=== PATIENT | female | born 1940 | race Caucasian/White ===

== ENCOUNTER → 2016-09-26 | Outpatient (CLI) | payer OTHER ==
--- NOTE | 2016-09-26 12:33 | US ---
Abdomen Retroperitoneal Renal Ultrasound: 1114 hours Indications: Rising creatinine. Findings: No hydronephrosis, shadowing renal calculi, focal cortical abnormalities or perinephric fl uid. Right kidney: 9.2 x 3.6 x 4 cm. Cortical thickness 1.1 cm. Left kidney: 10.0 x 3.8 x 3.8 cm. Cortical thickness 1.1 cm. Urinary bladder is unremarkable. No wall thickening or mass. Normal bilateral ureteral jets are visua lized. Prevoid volume: 111 mL The patient was unable to void. Impression: Normal renal ultrasound.
== END ==
LOC: FIMAGING 10:52
PROVIDERS: ATTEND Internal Medicine Hematology & Oncology
DX: R94.4 Abnormal results of kidney function studies (principal)

== ENCOUNTER 2017-02-04 17:38 | Emergency (ER) | payer OTHER ==
[2017-02-04 17:47] VITALS: BP 135/95; PULSE 95; RESP 17; TEMP 98.4; O2SAT 96
--- NOTE | 2017-02-04 17:49 | EDPHY ---
H & P Stated Complaint: balance issues fell this morning/pain l hand and shoulder/ denies loc or nec HPI/ROS: HPI CHIEF COMPLAINT: Mechanical trip and fall, left hand pain, left shoulder pain HISTORY OF PRESENT ILLNESS: This patient very pleasant 76-year-old female, significant past medical history for hypertension, breast cancer, brain cancer, bone cancer, presents emergency room after she was cutting a tree branch in her front yd she tripped and fell while going down the sidewalk, she landed on her left shoulder and left hand she has palmar side left hand pain left wrist pain over distal radius and distal ulnar, and left shoulder pain. States it hurts with range of motion of her hand, wrist, shoulder. No other areas of injury. Denies head strike, LOC, denies chest pain, shortness of breath, head pain, neck pain. Past Medical History: Hypertension, breast cancer, brain cancer, bone cancer. Past Surgical History: No recent surgical history Social History: Denies daily use of drugs alcohol tobacco products Family History: Noncontributory ROS REVIEW OF SYSTEMS: A comprehensive 10 point review of systems is otherwise negative aside from elements mentioned in the history of present illness. Exam Constitutional triage nursing summary reviewed, vital signs reviewed, awake/ alert. Eyes normal conjunctivae and sclera, EOMI, PERRLA. HENT normal inspection, atraumatic, moist mucus membranes, no epistaxis, neck supple/ no meningismus, no raccoon eyes. Respiratory clear to auscultation bilaterally, normal breath sounds, no respiratory distress, no wheezing. Cardiovascular rate normal, regular rhythm, no murmur, no edema, distal pulses normal. Gastrointestinal soft, non-tender, no rebound, no guarding, normal bowel sounds, no distension, no pulsatile mass. Genitourinary no CVA tenderness. Musculoskeletal left hand, wrist, arm: Tender palpation over the proximal humerus and lateral humeral head, full range of motion but has pain with range of motion, left arm is neurovascular intact warm, good cap refill, good radial pulse, tender palpation over the 5th metacarpal, also tender palpation of the distal radius and distal ulnar, the left wrist appear swollen compared to the right wrist. 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 no midline vertebral tenderness, full range of motion, no calf swelling, no tenderness of extremities, no meningismus, good pulses, neurovascularly intact. Skin pink, warm, & dry, no rash, skin atraumatic. Neurologic awake, alert and oriented x 3, AAOx3, moves all 4 extremities equally, motor intact, sensory intact, CN II-XII intact, normal cerebellar, normal vision, normal speech. Psychiatric normal mood/affect. Heme/Lymph/Immune no lymphadenopathy. Differential Diagnosis: Includes but is not limited to in a particular order, multiple contusions, shoulder fracture, humerus fracture, wrist fracture, hand fracture, metacarpal fracture Medical Decision Making: Plan for the patient ice pack, x-ray left hand, left wrist, left shoulder. Re-evaluation: The x-ray of her left shoulder, left wrist left hand been reviewed this shows a transverse fracture of the distal radius, intra-articular extension. Patient be placed in appropriate splint. Sling. Orthopedic follow-up. I did print her x-ray reports for her. Also noted sclerotic lesion left shoulder. I did update her on this. I have consulted Orthopedic surgery. 183: I spoke with Dr. Gibbons. He agrees to see this patient office tomorrow or the next day. She is to call their for an appointment. Source: Patient - Personal History Current Tetanus/Diphtheria Vaccine: No Tetanus Vaccine Date: UNSURE - Medical/Surgical History Hx Asthma: No Hx Chronic Respiratory Disease: No Hx Diabetes: No Hx Cardiac Disease: No Hx Renal Disease: No Hx Cirrhosis: No Hx Alcoholism: No Hx HIV/AIDS: No Hx Splenectomy or Spleen Trauma: No Other PMH: Breast CA w/ mets to brain - Social History Smoking Status: Never smoked Constitutional: Initial Vital Signs Temperature (C) 36.9 C 02/04/17 17:44 Heart Rate 95 02/04/17 17:44 Respiratory Rate 17 02/04/17 17:44 Blood Pressure 135/95 H 02/04/17 17:44 O2 Sat (%) 96 02/04/17 17:44 O2 Delivery Mode Room Air Allergies/Adverse Reactions: Penicillins Allergy (Intermediate, Verified 02/04/17 17:43) RASH/ITCHING Home Medications: Medication Instructions Recorded Lisinopril 10 mg PO DAILY #20 tablet 01/19/15 [place]quil 02/04/17 Medical Decision Making - Diagnostics Imaging Results: Imaging Impressions Hand X-Ray 02/04/17 17:54 Impression: Transverse distal left radial metaphyseal fracture with intra- articular extension. Shoulder X-Ray 02/04/17 17:55 Impression: 1. No fracture or dislocation. 2. Sclerotic lesion within the left glenoid, with additional sclerotic lesions in the thoracic spine, worrisome for osteosclerotic metastatic disease from breast cancer. Wrist X-Ray 02/04/17 17:59 Impression: Transverse distal left radial metaphyseal fracture, with intra- articular extension. Departure - Departure Disposition: Home, Routine, Self-Care Clinical Impression: Wrist fracture, left Qualifiers: Encounter type: initial encounter Fracture type: closed Qualified Code(s): S62.102A - Fracture of unspecified carpal bone, left wrist, initial encounter for closed fracture Condition: Good Instructions: Wrist Fracture in Adults (ED) Additional Instructions: 1. Please stay in your sling for comfort. Do not get wet. 2. Please follow up with Orthopedics call their for an appointment. Referrals: Enid Camp MD [Primary Care Provider] - As per Instructions Melvin Gibbons MD [Medical Doctor] - As per Instructions
== END 2017-02-04 19:05 | disposition home or self-care (01) ==
DX: S52.502A Unspecified fracture of the lower end of left radius, initial encounter for closed fracture (principal); I10 Essential (primary) hypertension; Z85.3 Personal history of malignant neoplasm of breast; Z85.841 Personal history of malignant neoplasm of brain; Z85.830 Personal history of malignant neoplasm of bone; W01.0XXA Fall on same level from slipping, tripping and stumbling without subsequent striking against object, initial encounter; Y92.480 Sidewalk as the place of occurrence of the external cause; Y93.89 Activity, other specified
CPT/HCPCS: 73030; 73110; 73130; 99283; A4565